=== PATIENT | female | born 1990 | race Caucasian/White ===

== ENCOUNTER 2021-03-25 12:24 | Inpatient (IN) | payer OTHER, SELFPAY ==
[2021-03-25] VITALS (112 sets, daily range): BP systolic 74–127; BP diastolic 31–100; PULSE 25–190; RESP 16–18; TEMP 36.8–37.2; O2SAT 80–100; BMI 33.0
--- NOTE | 2021-03-25 12:24 | LDADM ---
This patient, Michelle Oliver, was admitted to Labor/Delivery/Recovery 106 on 03/25/21 at 12:24. Plans for labor, pain management and were discussed with patient. Patient/family oriented to hospital policies and general routines including ID bracelet, bed and alarms, visiting hours, pain management, procedures, bathroom and other care routines, personal items, smoking policy, room service/diet and guest tray routines, infant security routines, and visiting hours. Patient/Family are encouraged to report perceived risks to care and to ask questions if they do not understand what they are told or what they should do. See OBIX for further documentation.
[2021-03-25] MEDS: AMPICILLIN 2 GM/NS 100 ML 2 GM/100 ML BAG IVPB (13:19)
[2021-03-25] MEDS: LACTATED RINGERS 1,000 ML 125 ML IV CONT ×3 (13:19→16:50)
[2021-03-25] MEDS: OXYTOCIN 30 UNITS/NS 500 ML 30 UNITS/500 ML BAG IV CONT (13:20)
[2021-03-25 13:35] LABS: Basophils Percent Auto 0.2 % (0.2-1.2); Eosinophils Percent Auto 0.3 % (0-4.4); Hematocrit 38.2 % (37.0-47.0); Hemoglobin 12.9 g/dL (12.0-15.0); Immature Granulocyte Absolute 0.04 K/mm3 (0.00-0.031); Immature Granulocyte Percent A 0.4 % (0-0.5); Immature Platelet Fraction Pct 20.3 % (0.9-11.2); Lymphocytes Absolute Auto 1.75 K/mm3 (0.9-3.2); Lymphocytes Percent Auto 18.1 % (18.3-44.2); Mean Corpuscular HGB Conc 33.8 g/dl (32-36); Mean Corpuscular Hemoglobin 30.9 pg (26-34); Mean Corpuscular Volume 91.6 fl (80-100); Mean Platelet Volume 13.2 fl (7.4-10.4); Monocytes Absolute Auto 0.6 K/mm3 (0.1-0.6); Monocytes Percent Auto 6.6 % (2.6-8.5); Neutrophils Absolute Auto 7.2 K/mm3 (1.3-6.7); Neutrophils Percent Auto 74.4 % (45.5-73.1); Platelet Count Result 132 k/mm3 (150-375); Red Blood Count 4.17 M/mm3 (4.2-5.4); Red Cell Distribution Width 12.6 % (11.5-14.5); White Blood Count 9.7 K/mm3 (4.5-10.0)
[2021-03-25 14:10] LABS: HIV 1/2 Ab P24 Ag Result Negative (Negative)
--- NOTE | 2021-03-25 14:36 | WPDANESEPP ---
Anes - Eval Pre Procedure Procedure: labor epidural Date/Time: 03/25/21 14:36 Surgeon: china Preop Diagnosis: pain during labor Pre Op Diagnosis: Leaking Patient Data Age: 30 Gender: F Height: 1.57 m Weight: 82 kg Last Vital Signs Temp 37.0 C 03/25/21 13:00 Pulse 75 03/25/21 14:34 BP 93/71 L 03/25/21 14:34 Pulse Ox 100 03/25/21 14:31 Allergies Allergy/AdvReac Type Severity Reaction Status Date / Time No Known Allergies Allergy Verified 01/30/14 11:23 Home Medications Medication Instructions Recorded Confirmed Type PNV cmb#95-ferrous fumarate-FA 1 tablet PO DAILY 03/15/21 03/15/21 History [] Laboratory Tests 03/25/21 03/25/21 03/25/21 13:09 13:09 13:09 WBC 9.7 K/mm3 K/mm3 (4.5-10.0) RBC 4.17 M/mm3 L M/mm3 (4.2-5.4) Hgb 12.9 g/dL g/dL (12.0-15.0) Hct 38.2 % % (37.0-47.0) MCV 91.6 fl fl (80-100) MCH 30.9 pg pg (26-34) MCHC 33.8 g/dl g/dl (32-36) RDW 12.6 % % (11.5-14.5) Plt Count 132 k/mm3 L D k/mm3 (150-375) MPV 13.2 fl H fl (7.4-10.4) Immature Gran % (Auto) 0.4 % % (0-0.5) Neut % (Auto) 74.4 % H % (45.5-73.1) Lymph % (Auto) 18.1 % L % (18.3-44.2) [place] % (Auto) 6.6 % % (2.6-8.5) Eos % (Auto) 0.3 % % (0-4.4) Baso % (Auto) 0.2 % % (0.2-1.2) Lymph # (Auto) 1.75 K/mm3 K/mm3 (0.9-3.2) [place] # (Auto) 0.6 K/mm3 K/mm3 (0.1-0.6) Eos # (Auto) 0.0 K/mm3 K/mm3 (0-0.3) Baso # (Auto) 0.0 K/mm3 K/mm3 (0.0-0.1) Abs Immat Gran (auto) 0.04 K/mm3 H K/mm3 (0.00-0.031) Absolute Neuts (auto) 7.2 K/mm3 H K/mm3 (1.3-6.7) Absolute Nucleated RBC 0.0 K/mm3 K/mm3 (0.0-0.012) Nucleated RBC % 0.0 % % (0.0-0.2) % Immature Plt Fraction 20.3 % H % (0.9-11.2) RPR Pending HIV 1&2 Ab/P24 Ag 4thGn Negative (Negative) Blood Type Antibody Screen 03/25/21 13:09 WBC RBC Hgb Hct MCV MCH MCHC RDW Plt Count MPV Immature Gran % (Auto) Neut % (Auto) Lymph % (Auto) [place] % (Auto) Eos % (Auto) Baso % (Auto) Lymph # (Auto) [place] # (Auto) Eos # (Auto) Baso # (Auto) Abs Immat Gran (auto) Absolute Neuts (auto) Absolute Nucleated RBC Nucleated RBC % % Immature Plt Fraction RPR HIV 1&2 Ab/P24 Ag 4thGn Blood Type B Positive Antibody Screen Negative Patient hx anesthesia problems: none Family hx anesthesia problems: none Results Review: All pre-operative results and documents have been reviewed as part of the pre-operative evaluation. [facility] Family History Family History Mother No problems noted. Father Heart problem Social History Social History Smoking status: Never smoker Second hand tobacco smoke exposure: No Substance use: never Gender identity (if verbalized by the patient): Female Spiritual care concerns: No Exam Day of Procedure 03/25/21 14:36
[2021-03-25] MEDS: AMPICILLIN 1 GM/NS 50 ML 1 GM/50 ML BAG IVPB (17:28)
--- NOTE | 2021-03-25 18:16 | PM.IMHP ---
H&P: HPI History of Present Illness Date/Time: 03/25/21 18:17 Year old multiparous complained of spontaneous rupture membranes 24hours prior to admission at term. has been uncomplicated and she is negative for group B strep. A forebag was noted and ruptured at approximately noon. Chief Complaint: ruptured membranes at term Review of Systems Review of Systems: All systems reviewed & are unremarkable except as noted in HPI and below PMFSH Family History Family History Mother No problems noted. Father Heart problem Social History Social History Smoking status: Never smoker Second hand tobacco smoke exposure: No Substance use: never Gender identity (if verbalized by the patient): Female Spiritual care concerns: No Meds Home Medications and Allergies Home Medications Medication Instructions Recorded Confirmed Type PNV cmb#95-ferrous fumarate-FA 1 tablet PO DAILY 03/15/21 03/15/21 History [] Allergies Allergy/AdvReac Type Severity Reaction Status Date / Time No Known Allergies Allergy Verified 01/30/14 11:23 Vital Signs Vital Signs - 24 hr 03/25/21 13:00 03/25/21 13:10 03/25/21 13:16 Temperature 98.6 F Pulse Rate 79 87 Blood Pressure 112/63 109/74 Pulse Oximetry 03/25/21 13:57 03/25/21 14:01 03/25/21 14:06 Temperature Pulse Rate 75 76 84 Blood Pressure 111/62 123/100 H 116/70 Pulse Oximetry 97 03/25/21 14:11 03/25/21 14:15 03/25/21 14:16 Temperature Pulse Rate 74 74 Blood Pressure 107/58 L 88/72 L Pulse Oximetry 98 96 03/25/21 14:19 03/25/21 14:20 03/25/21 14:21 Temperature Pulse Rate 80 79 82 Blood Pressure 109/61 109/57 L 102/49 L Pulse Oximetry 100 03/25/21 14:23 03/25/21 14:25 03/25/21 14:26 Temperature Pulse Rate 86 74 Blood Pressure 97/49 L 85/40 L Pulse Oximetry 98 03/25/21 14:28 03/25/21 14:30 03/25/21 14:31 Temperature 98.5 F Pulse Rate 56 L 59 L Blood Pressure 74/31 L 92/57 L Pulse Oximetry 100 03/25/21 14:32 03/25/21 14:34 03/25/21 14:36 Temperature Pulse Rate 107 H 75 Blood Pressure 95/74 L 93/71 L Pulse Oximetry 100 03/25/21 14:38 03/25/21 14:41 03/25/21 14:43 Temperature Pulse Rate 105 H 89 87 Blood Pressure 92/61 L 99/56 L 105/57 L Pulse Oximetry 100 03/25/21 14:46 03/25/21 14:49 03/25/21 14:51 Temperature Pulse Rate 72 71 Blood Pressure 113/64 94/75 L Pulse Oximetry 100 100 03/25/21 14:52 03/25/21 14:55 03/25/21 14:56 Temperature Pulse Rate 76 75 Blood Pressure 105/71 106/61 Pulse Oximetry 100 03/25/21 14:58 03/25/21 15:01 03/25/21 15:06 Temperature Pulse Rate 68 Blood Pressure 106/66 Pulse Oximetry 100 100 03/25/21 15:11 03/25/21 15:16 03/25/21 15:21 Temperature Pulse Rate Blood Pressure Pulse Oximetry 100 100 100 03/25/21 15:26 03/25/21 15:31 03/25/21 15:36 Temperature Pulse Rate 79 Blood Pressure 115/79 Pulse Oximetry 100 100 100 03/25/21 15:41 03/25/21 15:46 03/25/21 15:51 Temperature Pulse Rate Blood Pressure Pulse Oximetry 100 100 100 03/25/21 15:56 03/25/21 16:01 03/25/21 16:06 Temperature Pulse Rate 68 Blood Pressure 116/72 Pulse Oximetry 100 100 100 03/25/21 16:11 03/25/21 16:16 03/25/21 16:21 Temperature Pulse Rate Blood Pressure Pulse Oximetry 100 100 100 03/25/21 16:22 03/25/21 16:26 03/25/21 16:31 Temperature 98.9 F Pulse Rate 71 Blood Pressure 111/69 Pulse Oximetry 100 100 03/25/21 16:36 03/25/21 16:41 03/25/21 16:46 Temperature Pulse Rate Blood Pressure Pulse Oximetry 100 100 100 03/25/21 16:51 03/25/21 16:56 03/25/21 17:01 Temperature Pulse Rate 89 Blood Pressure 109/77 Pulse Oximetry 100 100 100 03/25/21 17:06 03/25/21 17:11 03/25/21 17:16 Tem
--- NOTE | 2021-03-25 18:46 | PM.OBPRVD ---
OB - Delivery Note Procedure Delivery date: 03/25/21 Intrapartal events: None Induction method: none Delivery augmentation: pitocin Delivery monitor: external FHT Route of delivery: Episiotomy description: None Laceration Description: None Quantitative Blood Loss (ml): 58 Disposition: floor Baby Date of : 03/25/21 Time of : 18:34 Weeks of gestation at delivery: 39 gender: Female presentation: vertex position: Right Occiput Anterior Placenta delivery description: Spontaneous cord vessel description: 3 Vessels score one minute: 8 score five minutes: 9
[2021-03-25] MEDS: OXYTOCIN 30 UNITS/NS 500 ML 30 UNITS/500 ML BAG 125 UNITS IV CONT (19:10)
--- NOTE | 2021-03-25 21:12 | OBPPTRN ---
Patient transferred to post room #290 via wheelchair. Support person present. Oriented to unit, room, information board, rooming in, admission packet and security measures. Patient verbalizes understanding.
[2021-03-25] MEDS: IBUPROFEN 600 MG TABLET PO (22:04)
[2021-03-26] MEDS: IBUPROFEN 600 MG TABLET PO ×3 (04:03→17:56)
[2021-03-26 04:05] VITALS: BP 125/69; PULSE 71; RESP 16; TEMP 36.3
[2021-03-26] MEDS: DIBUCAINE 1% OINTMENT 30 GM TUBE 1 APPLIC TOPICAL (04:05)
[2021-03-26 05:46] LABS: Hematocrit 33.2 % (37.0-47.0); Hemoglobin 11.3 g/dL (12.0-15.0)
[2021-03-26 07:15] VITALS: BP 100/32; PULSE 68; RESP 16; TEMP 36.3; O2SAT 98
[2021-03-26] MEDS: MULTIVIT/MIN/PREN/FOL AC/IRON TABLET 1 TAB PO (07:36)
[2021-03-26] MEDS: ACETAMINOPHEN 325 MG TABLET 650 MG PO (07:39)
--- NOTE | 2021-03-26 07:42 | P.PNOB_ITS ---
OB - PN: Subj Subjective Date/time seen: 03/26/21 07:42 Patient comments: no complaints and pain well controlled baby status: doing well OB - PN: Obj Data Labs CBC & Chem 7: 03/26/21 04:09 Labs: Laboratory Results - last 24 hr 03/25/21 03/25/21 03/25/21 13:09 13:09 13:09 WBC 9.7 RBC 4.17 L Hgb 12.9 Hct 38.2 MCV 91.6 MCH 30.9 MCHC 33.8 RDW 12.6 Plt Count 132 L D MPV 13.2 H Immature Gran % (Auto) 0.4 Neut % (Auto) 74.4 H Lymph % (Auto) 18.1 L [place] % (Auto) 6.6 Eos % (Auto) 0.3 Baso % (Auto) 0.2 Lymph # (Auto) 1.75 [place] # (Auto) 0.6 Eos # (Auto) 0.0 Baso # (Auto) 0.0 Abs Immat Gran (auto) 0.04 H Absolute Neuts (auto) 7.2 H Absolute Nucleated RBC 0.0 Nucleated RBC % 0.0 % Immature Plt Fraction 20.3 H HIV 1&2 Ab/P24 Ag 4thGn Negative Blood Type B Positive Antibody Screen Negative 03/26/21 04:09 WBC RBC Hgb 11.3 L Hct 33.2 L MCV MCH MCHC RDW Plt Count MPV Immature Gran % (Auto) Neut % (Auto) Lymph % (Auto) [place] % (Auto) Eos % (Auto) Baso % (Auto) Lymph # (Auto) [place] # (Auto) Eos # (Auto) Baso # (Auto) Abs Immat Gran (auto) Absolute Neuts (auto) Absolute Nucleated RBC Nucleated RBC % % Immature Plt Fraction HIV 1&2 Ab/P24 Ag 4thGn Blood Type Antibody Screen OB - PN A/P Plan day: 1 Plan: routine care Time Spent With Patient Time: Total time spent is greater than 50% in coordination of care (as documented) at patient's floor/unit and/or counseling patient: Time with patient: less than 15 minutes Review of Systems Review of Systems: All systems reviewed & are unremarkable except as noted in HPI and below Exam Const: General: no acute distress Eyes: General: appearance normal, both eyes and all related structures Neck: Neck: supple and no JVD Thyroid: thyroid normal Resp: Effort & Inspection: normal respiratory effort Auscultation: clear to auscultation bilaterally Cardio: Rate: regular rate Rhythm: regular rhythm GI: Inspection: non-distended GI Palp: Yes Soft to palpation, No Tenderness to palpation present (GI) and No Guarding due to palpation present (GI) Auscultation: normal bowel sounds : General: Yes bladder normal to palpation External Female Exam: normal external appearance Speculum Exam - Vagina: normal vaginal discharge and No vaginal bleeding Speculum Exam - Cervix: nontender Bimanual exam- vagina & uterus: bladder normal to palpation and No Cervical tenderness present OB/external & speculum: No vaginal bleeding Skin: General skin exam: no rashes or lesions noted Extrem: General: normal to inspection and no edema Psych: Mental Status: mental status grossly normal Affect: normal affect
[2021-03-26 10:00] LABS: Rapid Plasma Reagin Non-Reactive (NonReactive)
[2021-03-26] MEDS: WITCH HAZEL 40 PADS 1 PAD TOPICAL (11:16)
[2021-03-26 12:00] VITALS: BP 113/66; PULSE 69; RESP 18; TEMP 36.8; O2SAT 100
--- NOTE | 2021-03-26 12:55 | PC.NURSE ---
Consult with pt., mother reports she put to breast a few times and wishes to pump and bottle feed. Mother has her own pump she wishes to use for pumping. Instructions given on breast pump care and usage, pumping schedule, nipple care, and collection and storage of breast milk. Encouraged [id number], breast massage and manual expression to stimulate supply. Assessed patient for correct flange size, placement and draw. Patient verbalizes and demonstrates understanding of instructions. Discussed colostrum vs milk supply and mother may not see more than a few drops the first few days, milk should transition in by day 3 and she may see more volume pumped per session.
--- NOTE | 2021-03-26 13:10 | WPDANLDPN2 ---
Anes-Prog Note L&D Date/Time: 03/26/21 13:10 Comfortable throughout: labor and delivery Neuraxial method: epidural Epidural/Spinal procedure site: clean & non-tender Neuro status: Neuro function grossly intact. Cardiovascular status: normal Respiratory status: normal Airway patency: baseline Mental status: baseline Post-Op hydration status: normal Vital Signs: Last Vital Signs Temp 36.3 C L 03/26/21 07:15 Pulse 68 03/26/21 07:15 Resp 16 03/26/21 07:15 BP 100/32 L 03/26/21 07:15 Pulse Ox 98 03/26/21 07:15 Pain score (VAS): 1/10 I/O: Intake & Output 03/25/21 03/26/21 03/26/21 23:59 07:59 15:59 Intake Total 2150 Output Total 178 Balance 1972 Post-procedural complaints: none Patient feedback: Patient satisfied with anesthetic care.
[2021-03-26 15:45] VITALS: BP 97/49; PULSE 79; RESP 16; TEMP 36.8; O2SAT 97
[2021-03-26] MEDS: DOCUSATE SODIUM 100 MG CAPSULE PO (17:56)
[2021-03-26 21:00] VITALS: BP 131/87; PULSE 90; RESP 16; TEMP 36.6; O2SAT 99
[2021-03-27] MEDS: IBUPROFEN 600 MG TABLET PO ×2 (01:03→08:38)
--- NOTE | 2021-03-27 07:41 | P.DS_ITS ---
DS: Admitting Diagnosis Discharge Date 03/27/2021 Admitting Diagnosis term in active labor with prolonged rupture membranes DS: Summary Hospital Course Hospital Course: the patient was admitted with [id number] of rupture membranes. Pitocin augmentation was undertaken and the patient underwent spontaneous vaginal delivery which was unremarkable. Her 48hour course was unremarkable. She remained afebrile. She was up, voiding without difficulty, ambulating, generally without complaints Time Spent with Patient Time attestation: Total time spent providing and/or coordinating discharge services: Exam Const: General: no acute distress Eyes: General: appearance normal, both eyes and all related structures Neck: Neck: supple and no JVD Thyroid: thyroid normal Resp: Effort & Inspection: normal respiratory effort Auscultation: clear to auscultation bilaterally Cardio: Rate: regular rate Rhythm: regular rhythm GI: Inspection: non-distended GI Palp: Yes Soft to palpation, No Tenderness to palpation present (GI) and No Guarding due to palpation present (GI) Auscultation: normal bowel sounds : General: Yes bladder normal to palpation External Female Exam: normal external appearance Speculum Exam - Vagina: normal vaginal discharge and No vaginal bleeding Speculum Exam - Cervix: nontender Bimanual exam- vagina & uterus: bladder normal to palpation and No Cervical tenderness present OB/external & speculum: No vaginal bleeding Skin: General skin exam: no rashes or lesions noted Extrem: General: normal to inspection and no edema Psych: Mental Status: mental status grossly normal Affect: normal affect DS: Data Data Completed and Pending Labs on day of discharge: Labs from last 24 hours 03/25/21 13:09 RPR Non-reactive Discharge Plan Discharge Attending physician on discharge: Olu Joe Discharging Clinician: Olu Joe Patient Disposition: Home, Self-Care Activity: may shower, no straining and pelvic rest Diet: heart healthy Patient Instructions: Antibiotic Form Stand Alone Forms: General Discharge Information Follow-up/Referrals: Olu Joe MD [Physician] - Discharge Medications: Continued PNV cmb#95-ferrous fumarate-FA [] 28 mg iron- 800 mcg Tablet 1 tablet PO DAILY RF: 0 Date of admission: 03/25/21 12:24 Primary Care Provider: PHYSICIAN,NUCLEAR MEDICINE SUPERVISOR Admitting Provider: Olu Joe Attending physician on admission: Olu Joe Condition: Stable
--- NOTE | 2021-03-27 07:43 | PM.OBPNVD ---
OB - PN: Subj Subjective Date/time seen: 03/27/21 07:43 Patient comments: no complaints and pain well controlled baby status: doing well OB - PN: Obj Data Labs CBC & Chem 7: 03/26/21 04:09 Labs: Laboratory Results - last 24 hr 03/25/21 13:09 RPR Non-reactive OB - PN A/P Plan day: 2 Plan: routine care, discharge home and follow up 6 weeks Time Spent With Patient Time: Total time spent is greater than 50% in coordination of care (as documented) at patient's floor/unit and/or counseling patient: Time with patient: less than 15 minutes Review of Systems Review of Systems: All systems reviewed & are unremarkable except as noted in HPI and below Exam Const: General: no acute distress Eyes: General: appearance normal, both eyes and all related structures Neck: Neck: supple and no JVD Thyroid: thyroid normal Resp: Effort & Inspection: normal respiratory effort Auscultation: clear to auscultation bilaterally Cardio: Rate: regular rate Rhythm: regular rhythm GI: Inspection: non-distended GI Palp: Yes Soft to palpation, No Tenderness to palpation present (GI) and No Guarding due to palpation present (GI) Auscultation: normal bowel sounds : General: Yes bladder normal to palpation External Female Exam: normal external appearance Speculum Exam - Vagina: normal vaginal discharge and No vaginal bleeding Speculum Exam - Cervix: nontender Bimanual exam- vagina & uterus: bladder normal to palpation and No Cervical tenderness present OB/external & speculum: No vaginal bleeding Skin: General skin exam: no rashes or lesions noted Extrem: General: normal to inspection and no edema Psych: Mental Status: mental status grossly normal Affect: normal affect
[2021-03-27] MEDS: DOCUSATE SODIUM 100 MG CAPSULE PO (08:44)
[2021-03-27 08:45] VITALS: BP 115/62; PULSE 66; RESP 18; TEMP 36.3; O2SAT 100
[2021-03-27] MEDS: MULTIVIT/MIN/PREN/FOL AC/IRON TABLET 1 TAB (10:16)
[2021-03-28 10:29] VITALS: BP 126/81; PULSE 55; RESP 20; TEMP 36.9; O2SAT 100
== END 2021-03-27 10:51 | disposition home or self-care (01) | DRG 807 ==
LOC: ANHLDR 12:45 → ANHOB2 22:59
PROVIDERS: Admitting Provider Obstetrics & Gynecology; Visit Provider Obstetrics & Gynecology
DX: O42.92 Full-term premature rupture of membranes, unspecified as to length of time between rupture and onset of labor (principal); Z37.0 Single live birth; Z3A.38 38 weeks gestation of pregnancy
CPT/HCPCS: 36415; 84112; 85014; 85018; 85025; 85055; 86592; 86703; 86850; 86900; 86901; A9270; G0432; J0290; J2590; J2795; J7120

== ENCOUNTER 2022-07-04 08:39 | Outpatient (CLI) | payer BC, SELFPAY ==
[2022-07-04 10:39] LABS: Free T4 Free Thyroxine 0.93 ng/mL (0.78-2.19)
[2022-07-10 20:29] LABS: Prolactin 1.2 ng/mL (***)
[2022-07-11 04:29] LABS: Thyroid Peroxidase Antibodies 1 IU/mL (<9)
== END 2022-07-04 08:40 | disposition home or self-care (01) ==
PROVIDERS: Visit Provider Internal Medicine Endocrinology, Diabetes & Metabolism
DX: E03.9 Hypothyroidism, unspecified (principal)
CPT/HCPCS: 36415; 84146; 84439; 84443; 86376